=== PATIENT | male | born 1970 | race Caucasian/White ===

== ENCOUNTER → 2021-09-17 16:11 | Outpatient (BNVA) | payer BC, SELFPAY | PROVIDERS: PCP Nurse Practitioner Family; Visit Provider Physician Assistant Surgical | DX: Z13.89 Encounter for screening for other disorder (principal) ==

== ENCOUNTER → 2021-09-22 08:51 | Outpatient (BNVA) | payer BC, SELFPAY | PROVIDERS: PCP Nurse Practitioner Family; Visit Provider Physician Assistant Surgical | DX: Z13.89 Encounter for screening for other disorder (principal) ==

== ENCOUNTER 2021-09-23 | Outpatient (REF) | payer BC, SELFPAY ==
[2021-09-26 15:26] LABS: H Pylori Breath Test Negative (Negative)
== END 2021-09-23 00:01 | disposition home or self-care (01) ==
LOC: HO.LNP
PROVIDERS: Physician Assistant Surgical; Visit Provider Surgery
DX: A04.8 Other specified bacterial intestinal infections (principal)
CPT/HCPCS: 36415; 83013

== ENCOUNTER → 2021-09-23 16:06 | Outpatient (BNVA) | payer BC, SELFPAY | PROVIDERS: PCP Nurse Practitioner Family; Visit Provider Surgery | DX: Z13.89 Encounter for screening for other disorder (principal) | CPT/HCPCS: 36415 ==

== ENCOUNTER 2021-10-01 06:21 | Outpatient (REF) | payer BC, SELFPAY ==
[2021-10-01 06:42] LABS: MANUAL DIFF FLAG NO
--- NOTE | 2021-10-01 06:55 | ECG_ITS ---
Test Reason : E66.01 Blood Pressure : / mmHG Vent. Rate : 078 BPM Atrial Rate : 000 BPM P-R Int : 000 ms QRS Dur : 094 ms QT Int : 370 ms P-R-T Axes : 000 074 016 degrees QTc Int : 421 ms Atrial fibrillation Low voltage QRS Abnormal ECG No previous ECGs available Referred By: Giovanny Alanis Electronically Signed By:PHUC HERNANDEZ MD
[2021-10-01 07:55] LABS: Basophils Percent Auto 0.7 % (0-2); Eosinophils Absolute Auto 0.2 X10*3/uL (0.0-0.4); Eosinophils Percent Auto 3.9 % (0-4); Hematocrit 48.2 % (42.0-52.0); Hemoglobin 16.5 g/dl (14.0-18.0); Imm Gran Abs Auto 0.01 X10*3/uL (0.00-0.03); Imm Gran Pct Auto 0.2 % (0.0-0.4); Lymphocytes Absolute Auto 1.3 X10*3/uL (1.2-4.9); Lymphocytes Percent Auto 30.5 % (20-40); Mean Corpuscular HGB Conc 34.2 g/dl (31.0-36.0); Mean Corpuscular Hemoglobin 32.6 pg (27.0-33.0); Mean Corpuscular Volume 95.3 fL (80.0-98.0); Monocytes Absolute Auto 0.4 X10*3/uL (0.1-1.2); Monocytes Percent Auto 9.8 % (2-11); Neutrophils Absolute Auto 2.3 x10*3/uL (2.0-8.3); Neutrophils Percent Auto 54.9 % (45-73); Platelet Count 176 X10*3/uL (160-400); Red Blood Count 5.06 X10*6/uL (4.60-5.80); Red Cell Distribution Width 12.5 % (11.0-16.0); White Blood Count 4.1 X10*3/uL (4.8-10.8)
[2021-10-01 08:07] LABS: Estimated Average Glucose 111 mg/dL; Hemoglobin A1c % 5.5 %
[2021-10-01 08:18] LABS: Alanine Aminotransferase 58 U/L (0-40); Albumin Level 4.5 g/dL (3.5-5.0); Alkaline Phosphatase 80 U/L (39-117); Anion Gap 14 (12-20); Aspartate Amino Transferase 38 U/L (5-37); Bilirubin Total 0.9 mg/dL (0.0-1.0); Blood Urea Nitrogen 14 mg/dL (9-16); C Reactive Protein 0.31 mg/dL (< or = 0.50); Calcium 10.4 mg/dL (8.4-10.2); Carbon Dioxide 27 mmol/L (22-29); Chloride 104 mmol/L (96-108); Cholesterol 227 mg/dL; Estimated Glomerular Filt Rate > 60; Glucose Random 107 mg/dL (60-115); HDL Cholesterol 26 mg/dL; Iron 88 mcg/dL (45-160); Percent Iron Saturation 26 % (15-50); Potassium 4.4 mmol/L (3.3-5.1); Sodium 141 mmol/L (135-145); Total Iron Binding Capacity 336 mcg/dL (228-428); Total Protein 6.8 g/dL (6.5-8.0); Unsaturated Iron Binding 248 ug/dL
[2021-10-01 08:19] LABS: LDL Cholesterol Calculated 141 mg/dl; Triglycerides 301 mg/dL
[2021-10-01 08:48] LABS: Ferritin 362 ng/mL (20-250); TSH reflex Free T4 2.54 uIU/mL (0.32-4.0); Vitamin D 25-OH Total 12.6 ng/mL (>30)
[2021-10-01 09:09] LABS: Folate > 20.0 ng/mL (> or = 4.0); Vitamin B12 393 pg/mL (200-900)
[2021-10-01 09:18] LABS: Insulin 9 uU/mL (2-29)
[2021-10-02 15:00] LABS: Calcium (PTHI) 10.3 mg/dL (8.6-10.3); PTHI 65 pg/mL (16-77)
[2021-10-05 04:41] LABS: Vitamin B1 <6 nmol/L (8-30)
[2021-10-06 23:52] LABS: Zinc 88 mcg/dL (60-130)
[2021-10-07 17:17] LABS: Vitamin A 52 mcg/dL (38-98)
== END 2021-10-01 06:22 | disposition home or self-care (01) ==
LOC: HO.LAB 06:21
PROVIDERS: PCP Nurse Practitioner Family; Visit Provider Physician Assistant Surgical
DX: Z01.818 Encounter for other preprocedural examination (principal); E66.01 Morbid (severe) obesity due to excess calories
CPT/HCPCS: 36415; 80053; 80061; 82306; 82607; 82728; 82746; 83036; 83525; 83540; 83970; 84425; 84443; 84590; 84630; 85025; 86140; 93005

== ENCOUNTER 2021-10-02 06:35 | Outpatient (REF) | payer BC, SELFPAY ==
--- NOTE | ~2021-10-02 | XR_ITS ---
EXAMINATION: XR CHEST CLINICAL INFORMATION: Morbid obesity COMPARISON: None TECHNIQUE: 2 views of the chest were obtained. FINDINGS: Normal symmetric lung volumes. No parenchymal consolidation. No pleural effusion. No pneumothorax. Cardiomediastinal silhouette and pulmonary vascularity are within normal limits. No acute osseous abnormalities. XR/XR chest 2V IMPRESSION: No acute findings.
== END 2021-10-02 06:36 | disposition home or self-care (01) ==
LOC: HO.XRAY 06:35
PROVIDERS: PCP Nurse Practitioner Family; Visit Provider Physician Assistant Surgical
DX: E66.01 Morbid (severe) obesity due to excess calories (principal)
CPT/HCPCS: 71046

== ENCOUNTER → 2021-10-06 08:19 | Outpatient (BNVA) | payer BC, SELFPAY | PROVIDERS: PCP Nurse Practitioner Family; Referring Provider Physician Assistant Surgical; Visit Provider Dietitian, Registered | DX: E66.01 Morbid (severe) obesity due to excess calories (principal) | CPT/HCPCS: 97802 ==

== ENCOUNTER → 2021-10-20 08:24 | Outpatient (BNVA) | payer BC, SELFPAY | PROVIDERS: PCP Nurse Practitioner Family; Visit Provider Physician Assistant Surgical | DX: Z13.89 Encounter for screening for other disorder (principal) ==

== ENCOUNTER → 2021-10-22 16:45 | Outpatient (BNVA) | payer BC, SELFPAY | PROVIDERS: PCP Nurse Practitioner Family; Visit Provider Counselor Mental Health | DX: Z13.89 Encounter for screening for other disorder (principal) | CPT/HCPCS: 90791 ==

== ENCOUNTER 2021-11-10 08:33 | Outpatient (REF) | payer BC, SELFPAY ==
--- NOTE | ~2021-11-10 | FL_ITS ---
EXAMINATION: XR FLUOROSCOPY UPPER GI WITH AIR CLINICAL INFORMATION: Obesity. Prebariatric surgery. COMPARISON: None TECHNIQUE: Upper GI was performed using thin and thick barium and effervescent granules. FINDINGS: Esophageal motility is normal. No reflux or hernia is seen. The stomach and duodenum are normal-appearing. No fold thickening, mass, ulcer or stricture is seen. FLUOROSCOPY TIME: 0.5 minutes DOSE AREA PRODUCT: 7 vigil per centimeter squared. 21 saved fluoroscopic images. FL/FL upper GI w air IMPRESSION: Unremarkable examination.
--- NOTE | ~2021-11-10 | US_ITS ---
EXAMINATION: US COMPLETE ABDOMEN WITH LIVER ELASTOGRAPHY CLINICAL INFORMATION: Morbid obesity COMPARISON: None. TECHNIQUE: Real-time imaging of the abdominal viscera. Noninvasive ultrasound liver fibrosis assessment is performed using Christa ElastPQ point quantification shear wave elastography (2D-SWE) with a C5-2 MHz transducer. Multiple elastography samples are obtained. FINDINGS: PANCREAS: Normal. The visualized pancreatic head and body are normal in appearance. The remainder of the pancreas is obscured from visualization by the overlying bowel gas. ABDOMINAL AORTA: The proximal, middle, and distal aortic segments are normal in caliber. INFERIOR VENA CAVA: Visualized portions are normal. LIVER: Normal. The liver demonstrates normal size and contour. Increased parenchymal echogenicity compatible fatty infiltration.. No focal lesion or intrahepatic biliary duct dilatation. The right lobe measures 14.9 cm in length. The left lobe measures 11.1 cm in length. Portal flow is towards the liver (hepatopetal). Shear wave liver elastography median stiffness is 1.35 m/s (reference: normal median stiffness is 1.3 m/s or less). IQR/median stiffness to assess sampling precision is 0.29 (reference: good quality data set is IQR/median stiffness of 0.15 or less). GALLBLADDER: Normal. The gallbladder is physiologically distended without evidence of stones, sludge, polyps, wall thickening or pericholecystic fluid. COMMON BILE DUCT: Normal in caliber measuring 0.4 cm in diameter. RIGHT KIDNEY: Normal. No hydronephrosis. No renal calculi or focal parenchymal lesions. The kidney measures 13.1 cm in maximum dimension. LEFT KIDNEY: Normal. No hydronephrosis. No renal calculi or focal parenchymal lesions. The kidney measures 13.8 cm in maximum dimension. SPLEEN: Normal. The spleen measures 16.0 cm in maximum dimension. FREE FLUID: None. US/US abdomen comp w elastography IMPRESSION: 1. Hepatic steatosis. 2. Liver elastography: Although measurements appear to rule out compensated advanced chronic liver disease, there is statistical variability of the sampling which decreases accuracy. 3. Splenomegaly. REFERENCE: Society of Radiologists in Ultrasound Liver Stiffness Thresholds (2019): LIVER STIFFNESS THRESHOLDS: *Liver Stiffness equal or less than 1.3 m/s: High probability of being normal. *Liver Stiffness less than 1.7 m/s: In the absence of other known clinical signs, rules out compensated advanced chronic liver disease. *Liver Stiffness 1.7-2.1 m/s: Suggestive of compensated advanced chronic liver disease but need further test for confirmation. *Liver Stiffness over 2.1 m/s: Rules in compensated advanced chronic liver disease. *Liver Stiffness over 2.4 m/s: Suggestive of clinically significant portal hypertension. QUALITY OF DATA SET: *IQR/Median value equal or less than 0.15 implies a quality data set. *IQR/Median value over 0.15 implies a poor quality data set. SIGNIFICANT CHANGE FROM PRIOR EXAM: Significant change if liver stiffness measurement is 10% or greater from prior exam. OTHER CONSIDERATIONS: The stage of liver fibrosis may be overestimated in the setting of acute hepatitis, liver inflammation, elevated liver function tests, hepatic vascular congestion, obstructive cholestasis, non-fasting state, and infiltrative diseases such as amyloidosis and lymphoma. In some patients with NAFLD, the liver stiffness thresholds for compensated advanced chronic liver disease may be lower. In causes other than viral hepatitis and NAFLD, liver stiffness thresholds are not well established.
== END 2021-11-10 08:34 | disposition home or self-care (01) ==
LOC: HO.US 08:33
PROVIDERS: Visit Provider Physician Assistant Surgical
DX: Z01.818 Encounter for other preprocedural examination (principal); E66.01 Morbid (severe) obesity due to excess calories
CPT/HCPCS: 74246; 76705; 76981

== ENCOUNTER → 2021-11-27 08:46 | Outpatient (BNVA) | payer BC, SELFPAY | PROVIDERS: PCP Nurse Practitioner Family; Visit Provider Surgery | DX: Z13.89 Encounter for screening for other disorder (principal) ==

== ENCOUNTER 2021-12-25 12:04 | Outpatient (REF) | payer BC, SELFPAY | END 2021-12-25 12:05 | disposition home or self-care (01) | LOC: HO.LAB 12:04 | PROVIDERS: PCP Nurse Practitioner Family; Visit Provider Surgery | DX: Z13.89 Encounter for screening for other disorder (principal) ==

== ENCOUNTER 2021-12-30 06:02 | Inpatient (IN) | payer BC, SELFPAY ==
[2021-12-24 11:17] VITALS: BMI 48.2
[2021-12-25 12:29] LABS: MANUAL DIFF FLAG NO
[2021-12-25 13:32] LABS: Basophils Percent Auto 0.4 % (0-2); Eosinophils Absolute Auto 0.2 X10*3/uL (0.0-0.4); Eosinophils Percent Auto 3.1 % (0-4); Hematocrit 45.6 % (42.0-52.0); Hemoglobin 15.2 g/dl (14.0-18.0); Imm Gran Abs Auto 0.02 X10*3/uL (0.00-0.03); Imm Gran Pct Auto 0.4 % (0.0-0.4); Lymphocytes Absolute Auto 1.1 X10*3/uL (1.2-4.9); Mean Corpuscular HGB Conc 33.3 g/dl (31.0-36.0); Mean Corpuscular Hemoglobin 31.7 pg (27.0-33.0); Mean Corpuscular Volume 95.2 fL (80.0-98.0); Mean Platelet Volume 12.4 fL (9.4-12.4); Monocytes Absolute Auto 0.6 X10*3/uL (0.1-1.2); Monocytes Percent Auto 10.1 % (2-11); Neutrophils Absolute Auto 3.5 x10*3/uL (2.0-8.3); Platelet Count 172 X10*3/uL (160-400); Red Blood Count 4.79 X10*6/uL (4.60-5.80); Red Cell Distribution Width 13.9 % (11.0-16.0); White Blood Count 5.4 X10*3/uL (4.8-10.8)
[2021-12-25 13:39] LABS: Estimated Average Glucose 94 mg/dL; Hemoglobin A1C 127.3534 umol/L; Hemoglobin A1c % 4.9 %
[2021-12-25 13:41] LABS: INTERNATIONAL NORM RATIO 1.1 (0.9-1.1)
[2021-12-25 13:44] LABS: Partial Thromboplastin Time 41.7 SEC (24.1-38.0)
[2021-12-25 14:03] LABS: Alanine Aminotransferase 48 U/L (0-40); Albumin Level 4.5 g/dL (3.5-5.0); Alkaline Phosphatase 83 U/L (39-117); Anion Gap 13 (12-20); Aspartate Amino Transferase 25 U/L (5-37); Bilirubin Total 1.3 mg/dL (0.0-1.0); Blood Urea Nitrogen 16 mg/dL (9-16); C Reactive Protein 0.33 mg/dL (< or = 0.50); Calcium 10.2 mg/dL (8.4-10.2); Carbon Dioxide 30 mmol/L (22-29); Chloride 107 mmol/L (96-108); Cholesterol 215 mg/dL; Creatinine Clr Calc Pharmacy 117.2; Estimated Glomerular Filt Rate > 60; Glucose Random 98 mg/dL (60-115); HDL Cholesterol 26 mg/dL; LDL Cholesterol Calculated 143 mg/dl; Potassium 4.8 mmol/L (3.3-5.1); Sodium 145 mmol/L (135-145); Total Protein 6.7 g/dL (6.5-8.0); Triglycerides 234 mg/dL
[2021-12-25 14:14] LABS: Insulin 6 uU/mL (2-29); TSH reflex Free T4 2.18 uIU/mL (0.32-4.0)
--- NOTE | 2021-12-26 23:11 | MHC.SHP ---
Pre-Procedural Eval Section A Date of Service: 12/26/21 The patient is an INPATIENT: Yes The History & Physical has been completed within 30 days and I have reviewed it.: Yes Section B Chief Complaint: obesity Relevant Family History (Specify if Yes): No Relevant Social History: None Present Medications: None Medical History: No relevant PMH History of Previous Operations: No relevant previous surgery Allergies: Allergies Allergy/AdvReac Type Severity Reaction Status Date / Time No Known Allergies Allergy Verified 12/24/21 11:17 Review of Systems Sugical H&P ROS: Negative: Constitution, Cardiovascular, Respiratory, Neurological, Psychiatric, Hem-Onc, Allergic/Immunologic, Gastrointestinal, Genitourinary, Musculoskeletal, Integumentary, Endocrine and Eyes/Ears/Nose/Throat Exam Surgical H&P Exam: Normal: HEENT, Normal: Heart, Normal: Lungs, Normal: Extremities, Normal: Abdomen, Normal: Skin and Normal: Neurological Plan Diagnosis/Plan: Unchanged I have reviewed the history and physical and performed a pertinent physical examination on my patient. No changes have occurred unless specified.
[2021-12-29 15:19] LABS: COVID-19 Test Negative (Negative)
[2021-12-30] VITALS (14 sets, daily range): BP systolic 118–169; BP diastolic 65–97; PULSE 68–100; RESP 14–18; TEMP 35.9–37.4; O2SAT 92–99
[2021-12-30] MEDS: Lactated Ringers 1,000 ML 999 ML IV ×2 (06:58→07:03)
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
[2021-12-30] MEDS: ceFAZolin Sodium/Dextrose,Iso 2 GM/50 ML PIGGYBACK IV ×2 (07:42→13:35)
--- NOTE | 2021-12-30 10:31 | P.DS_ITS ---
DS: Providers Provider Date of Service: 12/31/21 Date of admission: 12/30/21 06:02 Primary care physician: Merly Yanes NP DS: Summary Hospital Course Hospital Course: ADMITTING DIAGNOSIS: morbid obesity, Afib, HTN, DISCHARGE DIAGNOSIS: same, s/p laparoscopic sleeve gastrectomy PAST SURGICAL HISTORY: hysterectomy, mastectomy PROCEDURE: upper endoscopy, laparoscopic sleeve gastrectomy DISCHARGE SUMMARY: History of Present Illness: The patient is a 51 year-old transgendered man with a BMI of 56.7 kg/m2 and associated co-morbidities as described above. The patient had extensive work- up,lost 43.2 lbs preoperatively and was electively scheduled for laparoscopic, possible open sleeve gastrectomy and gastropexy. Risks and complications of the surgery were discussed with the patient in advance, particularly the possibility of , pulmonary embolism, anastomotic leak, bleeding, bowel injury, GERD, cardiac, renal or pulmonary complications. The patient understood all the risks and was in agreement with the surgical plan. Hospital Course: The patient underwent an uneventful laparoscopic sleeve gastrectomy with gastropexy on the day of admission. Postoperatively, the patient was transferred to the surgical floor. The patient received IV Acetaminophen and IV dilaudid for pain control. Patient was started on bariatric phase 1 diet POD #0. On postoperative day one, the patient was feeling well without nausea, vomiting, fevers, or tachycardia. The patient had some mild incisional pain and the abdomen was soft. On the morning of postoperative day one, the patient was continued on 1 ounce of water or ice every half hour. During the day, the patient did fairly well, having some incisional pain, but able to ambulate adequately and to tolerate liquids well. Since the patient is doing well, we decided that the patient was ready to be discharged. The patient was given instructions to follow-up with me next week and to call my office for any fever over 101, persistent abdominal pain, nausea, vomiting, GERD, symptoms of DVT such as calf tenderness, or leg swelling, or pulmonary embolism such as chest pain or shortness of breath. The patient was also instructed to drink 40-60 ounces of liquids per day using the 1-ounce cups. The patient had been given prescriptions for Tylenol for pain, Zofran prn for nausea, and pantoprazole and carafate previously. The patient was encouraged to ambulate and use the incentive spirometer. The patient was allowed to shower, but no baths, and encouraged to stay active at home. All of these instructions were given to the patient personally. All questions were answered and the patient understood all instructions, the instructions were also given to the patient in print. Time Spent with Patient Time attestation: Total time spent providing and/or coordinating discharge services: Discharge coordination time: Less than 30 minutes Quality: Safe Use of Opioids Does Pt have an Active Cancer Diagnosis on the Problem List?: No Quality: Stroke Does the patient have a stroke diagnosis?: No Physical Exam Vital Signs: Vital Signs: Last Vital Signs Temp 96.7 F L 12/30/21 06:25 Pulse 68 12/30/21 06:25 Resp 16 12/30/21 06:25 BP 118/65 12/30/21 06:25 Pulse Ox 96 12/30/21 06:25 O2 Del Method 12/30/21 06:25 BMI result Body Mass Index 48.2 DS: Data Data Completed and Pending Pending studies at discharge: Pending at discharge 12/30/21 09:47 Surgical [PTH] Routine Labs on day of discharge: Laboratory Results - last 24 hr 12/29/21 14:20 COVID-19 (DIANA) Negative COVID-19 Clin Com See Note Discharge Plan Discharge Anticipated Discharge Date/Time: 12/31/21 10:00 Patient Disposition: Home, Self-Care Discharge Diagnosis: s/p sleeve gastrectomy Referrals: Merly Yanes NP [Primary Care Provider] - 1 Week Discharge Medications: Continued pantoprazole 40 mg tablet,delayed release (DR/EC) 40 mg PO DAILY Qty: 30 2RF sucralfate 100 mg/mL suspension 10 ml PO BID Qty: 400 2RF ondansetron HCl 4 mg tablet 4 mg PO Q12H Qty: 20 0RF cetirizine [Zyrtec] 10 mg tablet 10 mg PO DAILY PRN (Reason: Allergy Symptoms) albuterol sulfate 90 mcg/actuation HFA aerosol inhaler 2 inh inhalation Q6H PRN (Reason: shortness of breath or wheezing) Qty: 6.7 0RF (DME) BD Luer-Milton Syringe 3 mL 22 gauge x 1 syringe See Rx Instructions IM Q2W Qty: 1 Rx Instructions: As directed Held fondaparinux 2.5 mg/0.5 mL syringe 2.5 mg subcut Q24H Qty: 5 2RF Hold Instructions: Discuss restart with Dr Ng Label Comments: first dose 12/24 6 pm testosterone cypionate [Depo-Testosterone] 200 mg/mL oil 100 mg IM Q2W Qty: 1 0RF Hold Instructions: Discuss restart with Dr Ng Rx Instructions: last dose 12/05-to hold 5 weeks amlodipine 5 mg tablet 5 mg PO DAILY Qty: 1 0RF Hold Instructions: Resume on 01/01/22. Send first your blood pressure daily to Dr. Ng and wait for him to respond before you take this medication metoprolol tartrate 25 mg tablet 25 mg PO BID Qty: 1 0RF Hold Instructions: Resume on 01/01/22. Send first your blood pressure daily to Dr. Ng and wait for him to respond before you take this medication lisinopril 20 mg tablet 20 mg PO DAILY Qty: 1 0RF Hold Instructions: Resume on 01/01/22. Send first your blood pressure daily to Dr. Ng and wait for him to respond before you take this medication methotrexate sodium 10 mg tablet 20 mg PO QWEEK Qty: 1 0RF Hold Instructions: Discuss restart with Dr Ng Label Comments: last dose 12/18, to hold for 5 weeks Xarelto 20 mg tablet 20 mg PO DAILY Qty: 30 3RF Hold Instructions: Discuss restart with Dr Ng Rx Instructions: must administer with evening meal Discontinued cholecalciferol (vitamin D3) 125 mcg (5,000 unit) capsule 125 mcg PO DAILY Qty: 30 3RF thiamine HCl (vitamin B1) 100 mg tablet 100 mg PO DAILY Qty: 90 1RF polyethylene glycol 3350 [Miralax] 17 gram powder in packet 17 g PO DAILY Qty: 14 0RF Rx Instructions: Do 7 packets mixing each one with 8oz of water on 12/28/21 and another 7 packets on 12/29/21 mecobalamin (vitamin B12) 1,000 mcg tablet,disintegrating 1,000 mcg sublingual DAILY Qty: 30 2RF Rx Instructions: place tablet under tongue and allow to dissolve for at least30 secs before swallowing folic acid 1 mg tablet 1 mg PO DAILY Qty: 1 0RF Discharge Orders: Discharge Order (Routine); Ordered 12/31/21 Ordered By: Dada Ng Activity on Discharge: No heavy lifting Stand Alone Forms: Patient Portal Discharge page Care Plan Goals: weight loss Health Concerns: morbid obesity Plan of Treatment: No tub baths, sex or returning to work until discussed at first post op appointment. No exercise, alcohol, tobacco or illegal drug use. Continue to use incentive spirometer hourly while awake. Walk in home for 5- 10 minutes every 2 hours during the first week. Continue phase 1 diet today and start phase 2 diet tomorrow morning. Follow all instructions in the bariatric handbook and call with any questions. 1. Please call your doctor or come back to the emergency room should any new symptoms arise. 2. You will receive a courtesy call from [facility] 24-48 hours after discharge. 3. Activity: abstain from alcohol, practice limited stair climbing, no bending, no driving, no exercise, no illicit substances, no lifting, no sex, no tub bath, no work. 4. Diet: continue as discussed with Dr. Ng. 5. Dressing Change/Wound Care: Do not change or remove surgical dressings unless they are wet or soiled. 6. Call your doctor if: - Your temperature exceeds 101.5 F - You experience excessive pain or swelling - You have an unexpected reaction to medication - You have excessive bleeding - You experience continued vomiting/nausea - Your incision begins to separate - Your incision shows signs of infection such as increased redness, swelling, excessive pain, heat, or drainage (light blood or clear fluid is normal) 7. General instructions: No lifting greater than 5 lbs for the next 4 weeks[address] driving within 24 hours of taking narcotic pain medications. If you do not move your bowels in the next 2 days, please take milk of magnesia over the counter. Please follow the post op diet and do not advance your diet until you are seen in the office in about 2 weeks. Please walk around your home every hour or two to prevent blood clots from forming in your legs. You do not need to wake from sleeping to walk. Please sleep in a bed or couch to prevent kinking at the hips and knees. Please take your incentive spirometer (your lung chemistry instructor) home with you and use it for the next few days to prevent pneumonias. You may shower, no hot tubs, baths or swimming pools. Please call the office with any questions or concerns such as increasing abdominal pain, fever, chills, shortness of breath, chest pain, leg pain or swelling, or redness or drainage from your incisions. Do not hesitate to contact the office with any questions at . The patient's medical history has been reviewed and they are considered low risk for post op DVT and therefore DVT prophylaxis is not considered necessary. Travel after surgery was reviewed. The patient has not disclosed any travel plans during the first 30 days after surgery and they have been advised that within the first 30 days after surgery any bus, plane, train or car travel over 2 hours in duration is contraindicated due to the possibility of developing blood clots from immobility. Any travel, needs to include periods of ambulation of 10 minutes in duration every 2 hours. The patient was instructed to discuss any plans for travel during this period with their bariatric surgeon. Assessment: stable, post op sleeve gastrectomy Discharge Date/Time: 12/31/21 09:28
--- NOTE | 2021-12-30 10:36 | PHA.MEDREC ---
Pharmacy Consult ? Medication Reconciliation RN has completed the medication reconciliation,pharmacy reviewed
--- NOTE | 2021-12-30 10:37 | PM.OP ---
Brief Operative Note Date of Service: 12/30/21 Pre-op diagnosis: Morbid obesity with comorbidities (see below) Post-op diagnosis: same Procedure: INITIAL PATIENT BMI ON PRESENTATION AT OUR OFFICE: 55.9 kg/m2 LAST BMI BEFORE SURGERY: 48.2 kg/m2 COMORBIDITIES: asthma, hypertension, atrial fibrilation, ?The patient presented to the Weight Management Program with significant obesity that was negatively impacting the patient's comorbidities as listed above.? The program is a phased program with a special focus on preoperative medical weight management to promote substantial weight loss and prepare the patients for the second phase of the program: bariatric surgery. The patient participated in an intensive weekly lifestyle ?intervention and exercise program during which the patient ?has lost between the initial office visit and the last preoperative visit 47 lbs, or 15.15% of initial actual body weight. It was deemed appropriate for the patient to now have bariatric surgery. In light of the current Covid-19 pandemic and the well documented strong association of obesity and increased risk of worse outcomes if infected with Covid-19 (REFERENCES:https://pubmed.ncbi.nlm.nih.gov/35564880/,?https://pubmed.ncbi.nlm.nih.gov/63051454/), any delay in undergoing bariatric surgery may lead to the patient's worsening health condition and increased?risk of more severe Covid-19 disease if infected. In addition a recent?study from [facility] published in [facility] on 06/22/2021 ([email or web address]) found that, among patients with obesity, substantial weight loss achieved with surgery was associated with improved outcomes of COVID-19 infection. The findings suggest that obesity can be a modifiable risk factor for the severity of COVID-19 infection. In addition, the patient met the BMI-criteria for bariatric surgery based on the BMI on initial presentation. The patient should not be penalized for achieving such weight loss because ?it is not sustainable long-term without surgical intervention and it was achieved in preparation for bariatric surgery ?under my direction and based on my published research ([email or web address]).[email or web address] and?[email or web address].soard.org/article/[email or web address]/pdf) ?that a 10% preoperative weight loss improves long-term weight loss after surgery and reduces perioperative complications.? Insurance carriers such as [facility] have endorsed my recommendations ?and have included in their policies criteria to include a 10% preoperative weight loss requirement. PROCEDURE: Esophago-gastroscopy, laparoscopic sleeve gastrectomy and laparoscopic gastropexy INDICATIONS: This is a 51 year-old male who was electively scheduled for laparoscopic, possibly open sleeve gastrectomy. The risks and complications of the procedure were discussed with the patient in advance, particularly the possibility of ; pulmonary embolism; staple line leak; bleeding; GERD; cardiac, pulmonary, or renal complications; as well as long-term problems such as insufficient weight loss, vitamin deficiency, strictures, or ulcers. The patient understood all the risks, and was in agreement to proceed with surgery. DESCRIPTION OF PROCEDURE: After informed consent was obtained from the patient, the patient was given preoperative antibiotics, and was transferred to the operating room. After successful induction of general anesthesia, pneumatic compression devices were placed on both lower extremities. An upper endoscopy was performed next. The oropharynx and esophagus appeared to be within normal limits. There was no diaphragmatic hernia present consistent with the findings of the preoperative upper GI. The stomach was entered. Then after all fluid and air were suctioned and the stomach was fully decompressed, the scope was withdrawn and secured in the mid esophagus. The patient was then prepped and draped in the usual sterile manner, and abdominal access was established at the right upper quadrant with the Tereso technique. A 12 mm blunt port was inserted, and the abdomen was insufflated with CO2 to a pressure of 15 mmHg. Under direct visualization, additional ports were placed, specifically two 5 mm Versi-step ports to the left upper quadrant, and a 5 mm Versi-Step port to the right upper quadrant. 1% lidocaine plain was used to infiltrate all port sites as well as all fascia defects. Using the EndoClose suture passer device, I placed a #1 Polysorb tie across the falciform ligament in order to retract it up against the abdominal wall and prevent injury of the ligament with our instruments during the procedure. Following that, the patient was placed in a steep reverse Trendelenburg position. An additional 5 mm port was placed to the right flank for the Mediflex retractor that was used to retract the left lobe of the liver. The gastro-esophageal fat pad was opened with the ultrasonic device (Thunderbeat, Olympus) and the anterior esophagus and hiatus were exposed. The angle of His was opened with the ultrasonic device the fundus of the stomach from any diaphragmatic and splenic attachments. I then opened the gastrocolic ligament between the transverse colon and the greater curvature of the stomach with the ultrasonic device to enter the lesser sac and facilitate the ligation of the short gastric vessels. I started at a mid-point along the greater curvature and using the Thunderbeat, all short gastric vessels were divided all the way to the angle of His until the left bassem was completely dissected at its entirety. I then divided the gastro-colic ligament distally to a distance of about 3-4 cm proximal to the pylorus. The stomach was then divided transversely with one Endo YULI-45 purple, one YULI-45 orange load and four YULI-60 articulating orange loads using the AEON stapler and loads. Every effort was made that the gastric sleeve had a tubular shape and an even caliber throughout. Once the sleeve resection was completed, the staple line of the gastric sleeve was reinforced with Hemoclips. The resected stomach was retrieved without difficulty from the Tereso port. A gastropexy was then performed in order to prevent postoperative GERD and partial gastric volvulus. Several interrupted 2.0 Surgidac sutures were placed between the sleeve's staple line and the previously divided greater omentum and gastro-colic ligament using the Endo-Stitch device. ?An upper endoscopy was performed. There was no narrowing at the GE junction. The scope was easily advanced all the way to the pylorus which was clearly visualized. There was no narrowing anywhere and the sleeve's caliber was even throughout. The sleeve's staple line was inspected and there was no evidence of ischemia, bleeding or dehiscence. At that point the gastroscope was withdrawn from the patient?s mouth while we were decompressing the bowel and the stomach from any remaining air. I looked into the lesser sac to see how the sleeve was situating and it was situating well. There was no bleeding from the staple line, spleen, or short gastric vessels. The Mediflex retractor was removed, and the undersurface of the liver was inspected and there was no bleeding. The patient was placed in supine position. I closed the fascial defect of the 12 mm port site with a figure of eight #1 Polysorb suture. Then 40ml of Rupivacaine plain with 10 mg of Dexamethasone were used to infiltrate the fascial closure as well as all skin incisions. A total of 7 ml of Zynrelef was applied in the Tereso wound. At this point, the abdomen was deflated, all ports were removed under direct vision, and no bleeding was noted from any of the port sites. The skin incisions were irrigated with saline and were closed with 4-0 absorbable monofilament sutures. Steri-Strips and OpSites were used to cover all incisions. The patient was extubated and was transferred in stable condition to the recovery room for further care. I was present and performed all burch parts of the procedure. Ya Lizarraga was the pediatric assistant. There were no residents to assist with this case. Mikey Ng MD, PhD, FACS Surgeon: Dada Ng MD Anesthesia: GETA, local and other (TAP block & 7 ml of Zynrelef) Was an Sustainable Communities Designer used for this Procedure?: Yes Sustainable Communities Designer: Isabel Lizarraga Estimated blood loss (mL): 10 IV fluids (mL): 3,000 Urine output (mL): 0 (No whitney to record output) Pathology: other (Stomach and fat pad) Condition: stable Disposition: PACU
--- NOTE | 2021-12-30 10:46 | PM.PNGS ---
Subjective Subjective Date of Service: 12/31/21 Interval history: Feels well. Mild incisional pain. He is tolerating phase 1 bariatric diet Physical Exam Vital Signs: Vital Signs: Last Vital Signs Temp 98.2 F 12/30/21 10:24 Pulse 83 12/30/21 10:34 Resp 18 12/30/21 10:34 BP 137/85 12/30/21 10:34 Pulse Ox 99 12/30/21 10:34 O2 Del Method 12/30/21 10:34 O2 Flow Rate 8 12/30/21 10:34 BMI result Body Mass Index 48.2 GI: Inspection: Yes normal to inspection, Yes incision (clean, dry and intact) and Yes obesity Extrem: Right lower extremity: normal to inspection (no calf tenderness) Left lower extremity: normal to inspection (no calf tenderness) Objective Data Active Medications Albuterol Sulfate (Albuterol Sulfate (0.083%) 2.5 Mg/3 Ml Vial.Neb) 2.5 mg INHALE ONCE PRN PRN Reason: Shortness of Breath/Wheezing Albuterol Sulfate (Albuterol Sulfate 90 Mcg 8 Gm Inhaler) 2 puff INHALE Q6H PRN PRN Reason: shortness of breath or wheezing Amlodipine Besylate (Amlodipine Besylate 5 Mg Tablet) 5 mg PO DAILY OTIS; Protocol Famotidine (Famotidine/Pf 20 Mg/2 Ml Vial) 20 mg IVPUSH BID OTIS Fentanyl (Fentanyl Citrate/Pf 100 Mcg/2 Ml Vial) 25 mcg IVPUSH Q5M PRN; Protocol PRN Reason: Pain, Moderate (Pain Scale 4-6 Hydromorphone HCl (Hydromorphone Hcl 0.5 Mg/0.5 Ml Syringe) 0.25 mg IVPUSH Q5M PRN; Protocol PRN Reason: Pain, Severe (Pain Scale 7-10) Promethazine HCl 6.25 mg/ (Sodium Chloride) 50.25 mls @ 201 mls/hr IV ONCE PRN PRN Reason: Nausea and Vomiting Lactated Ringer's (Lr) 1,000 mls @ 100 mls/hr IVCONT .Q10H OTIS Lisinopril (Lisinopril 20 Mg Tablet) 20 mg PO DAILY [facility]; Protocol Metoclopramide HCl (Metoclopramide Hcl 10 Mg/2 Ml Vial) 10 mg IVPUSH Q6H PRN PRN Reason: Nausea Metoprolol Tartrate (Metoprolol Tartrate 25 Mg Tablet) 25 mg PO BID OTIS; Protocol Ondansetron HCl (Ondansetron Hcl 4 Mg/2 Ml Vial) 4 mg IVPUSH ONCE PRN PRN Reason: Nausea and Vomiting Labs CBC & Chem 7: 12/31/21 05:51 12/31/21 05:51 Labs: Laboratory Results - last 24 hr 12/29/21 14:20 COVID-19 (DIANA) Negative COVID-19 Clin Com See Note Procedures Date of Service Date of Service: 12/31/21 Progress Note: A&P Assessment and plan (1) Morbid obesity: Status: Acute Assessment and Plan: s/p laparoscopic sleeve gastrectomy and gastropexy Doing well Will check am labs and if OK the patient will be discharged home (2) HTN (hypertension): Status: Acute (3) Atrial fibrillation: Status: Acute (4) PCOS (polycystic ovarian syndrome): Status: Acute (5) Asthma: Status: Acute (6) S/P laparoscopic sleeve gastrectomy: Status: Acute (7) Steatosis, liver: Status: Acute (8) Status post sleeve gastrectomy: Status: Acute Time Spent With Patient Time: Total time spent is greater than 50% in coordination of care (as documented) at patient's floor/unit and/or counseling patient: Quality Stroke Does the patient have a stroke diagnosis?: No VTE Prior VTE?: No VTE Risk Level:: Surgical - moderate VTE Device Contraindication: N/A - Device Ordered VTE Drug Contraindication: Treatment Not Indicated
[2021-12-30] MEDS: Lactated Ringers 1,000 ML 100 ML IVCONT ×2 (10:56→19:41)
[2021-12-30] MEDS: Famotidine/PF 20 MG/2 ML VIAL IVPUSH ×2 (10:57→19:36)
[2021-12-30 11:00] LABS: Hematocrit 47.9 % (42.0-52.0); Hemoglobin 16.2 g/dl (14.0-18.0)
[2021-12-30 11:18] LABS: Anion Gap 13 (12-20); Blood Urea Nitrogen 14 mg/dL (9-16); Calcium 9.6 mg/dL (8.4-10.2); Carbon Dioxide 27 mmol/L (22-29); Chloride 104 mmol/L (96-108); Creatinine Clr Calc Pharmacy 110.7; Estimated Glomerular Filt Rate > 60; Glucose Random 142 mg/dL (60-115); Potassium 4.1 mmol/L (3.3-5.1); Sodium 140 mmol/L (135-145)
[2021-12-30] MEDS: ondansetron HCL 4 MG/2 ML VIAL IVPUSH ×2 (15:37→23:45)
[2021-12-30] MEDS: Metoprolol Tartrate 25 MG TABLET PO (19:36)
[2021-12-30] MEDS: 0.9 % Sodium Chloride Flush 3 ML SYRINGE IVFLUSH (19:37)
[2021-12-31 03:11] VITALS: BP 136/85; PULSE 82; RESP 18; TEMP 36.7; O2SAT 96
[2021-12-31] MEDS: Lactated Ringers 1,000 ML 100 ML IVCONT (05:17)
[2021-12-31 07:05] LABS: MANUAL DIFF FLAG NO
[2021-12-31 07:09] LABS: Basophils Percent Auto 0.1 % (0-2); Hematocrit 45.7 % (42.0-52.0); Hemoglobin 15.5 g/dl (14.0-18.0); Imm Gran Abs Auto 0.03 X10*3/uL (0.00-0.03); Imm Gran Pct Auto 0.4 % (0.0-0.4); Lymphocytes Absolute Auto 0.6 X10*3/uL (1.2-4.9); Lymphocytes Percent Auto 7.5 % (20-40); Mean Corpuscular HGB Conc 33.9 g/dl (31.0-36.0); Mean Corpuscular Hemoglobin 32.4 pg (27.0-33.0); Mean Corpuscular Volume 95.4 fL (80.0-98.0); Mean Platelet Volume 12.9 fL (9.4-12.4); Monocytes Absolute Auto 0.5 X10*3/uL (0.1-1.2); Monocytes Percent Auto 5.6 % (2-11); Neutrophils Absolute Auto 7.2 x10*3/uL (2.0-8.3); Neutrophils Percent Auto 86.4 % (45-73); Platelet Count 170 X10*3/uL (160-400); Red Blood Count 4.79 X10*6/uL (4.60-5.80); Red Cell Distribution Width 13.8 % (11.0-16.0); White Blood Count 8.3 X10*3/uL (4.8-10.8)
--- NOTE | 2021-12-31 07:18 | HO.POSTANES ---
Post Anesthesia Evaluation Post Anesthesia Evaluation Vital Signs: Vital Signs Temp Pulse Resp BP Pulse Ox O2 Del Method 12/31/21 06:37 Room Air 12/31/21 03:11 98.1 F 82 18 136/85 96 Room Air 12/30/21 23:03 99.4 F 100 18 155/90 H 92 Room Air 12/30/21 21:00 142/94 H Anesthesia: General Endotracheal-GETA Mental Status: Awake Pain Control: Satisfactory Nausea/Vomiting: None Hydration: Adequate Anesthesia-Related Issues: No Anes. Related Issues
[2021-12-31 07:28] VITALS: BP 137/75; PULSE 81; RESP 18; TEMP 36.9; O2SAT 96
[2021-12-31 07:36] LABS: Anion Gap 16 (12-20); Blood Urea Nitrogen 12 mg/dL (9-16); Calcium 9.3 mg/dL (8.4-10.2); Carbon Dioxide 22 mmol/L (22-29); Chloride 105 mmol/L (96-108); Creatinine Clr Calc Pharmacy 127.6; Estimated Glomerular Filt Rate > 60; Glucose Random 120 mg/dL (60-115); Potassium 4.1 mmol/L (3.3-5.1); Sodium 139 mmol/L (135-145)
[2021-12-31] MEDS: Metoprolol Tartrate 25 MG TABLET PO (07:37)
[2021-12-31] MEDS: lisinopriL 20 MG TABLET PO (07:37)
[2021-12-31] MEDS: ondansetron HCL 4 MG/2 ML VIAL IVPUSH (07:37)
[2021-12-31] MEDS: amLODIPine Besylate 5 MG TABLET PO (07:37)
[2021-12-31] MEDS: Famotidine/PF 20 MG/2 ML VIAL IVPUSH (07:37)
--- NOTE | 2021-12-31 09:25 | MHC.CM.PN ---
EMR REVIEWED, PT ADMITTED S/P LAP SLEEVE GASTRECTOMY, PT REPORTS HE IS WORKING, LIVES W/SPOUSE, IS INDEP W/ALL CARE, DENIES USE OF DME AND HOME SERVICES, VERIFIES MODERNA X4, ZACHARY PEDROZA VERIFIED PCP AND HCP COMPLETED W/CM, PT NAMED OSMAR DYER [phone] [facility] W/NO ALTERNATE, PT PROVIDED W/EDUCATIONAL HANDOUT/ORIGINAL AND 2 COPIES. DCP: PT DISCHARGED TODAY W/F/U SHAAN 01/05 AT 1PM/2:30PM, AT BEDSIDE AND WILL TRANSPORT
== END 2021-12-31 09:28 | disposition home or self-care (01) | DRG 403 ==
LOC: HO.SSSA 10:31 → HO.S3 12:03
PROVIDERS: Physician Assistant; Physician Assistant Surgical; Admitting Provider Surgery; PCP Nurse Practitioner Family; Visit Provider Surgery
PROC: 0DB64Z3 Excision of Stomach, Percutaneous Endoscopic Approach, Vertical (ICD-10-PCS; CPT 43845; principal; 2021-12-30 07:30)
DX: E66.01 Morbid (severe) obesity due to excess calories (principal); Z20.822 Contact with and (suspected) exposure to COVID-19; Z68.43 Body mass index [BMI] 50.0-59.9, adult; Z87.891 Personal history of nicotine dependence; Z79.01 Long term (current) use of anticoagulants; Z79.899 Other long term (current) drug therapy
CPT/HCPCS: 36415; 80048; 80053; 80061; 83036; 83525; 84443; 85014; 85018; 85025; 85610; 85730; 86140; 86850; 86900; 86901; 87635; 88307; 88342; A4649; C9088; J0131; J0690; J1100; J1170; J2250; J2405; J2795; J3010

== ENCOUNTER → 2022-01-06 09:42 | Outpatient (REF) | payer BC, SELFPAY ==
--- NOTE | 2022-01-06 09:51 | ECG_ITS ---
Test Reason : PREOP Blood Pressure : / mmHG Vent. Rate : 057 BPM Atrial Rate : 000 BPM P-R Int : 000 ms QRS Dur : 092 ms QT Int : 402 ms P-R-T Axes : 000 065 020 degrees QTc Int : 391 ms Atrial fibrillation with slow ventricular response Low voltage QRS Abnormal ECG When compared with ECG of 01-OCT-2021 06:56, No significant change was found Referred By: Isabel Lizarraga Electronically Signed By:PHUC HERNANDEZ MD
== END ==
LOC: HO.CARD 09:42
PROVIDERS: PCP Nurse Practitioner Family; Visit Provider Physician Assistant
DX: Z01.818 Encounter for other preprocedural examination (principal); I48.91 Unspecified atrial fibrillation; I10 Essential (primary) hypertension; E66.01 Morbid (severe) obesity due to excess calories
CPT/HCPCS: 93005

== ENCOUNTER → 2022-01-11 07:34 | Outpatient (REF) | payer BC, SELFPAY ==
--- NOTE | 2022-01-11 07:37 | HM_ITS ---
Conclusion: 1. Patient was monitor for total period of 2 days and 23 hours 2. Baseline was atrial fibrillation with average heart of 75 beats per minute with minimal heart rate of 41 beats per minute and maximum heart rate 186 beats per minute 3. No significant pauses noted 4. One hundred eleven beat run of nonsustained VT 5. Very rare PVCs noted 6. Patient reported events but no symptoms and mostly during exertional activity level, with appropriate heart rate response MTDD
== END ==
LOC: HO.CARD 07:34
PROVIDERS: Visit Provider Internal Medicine Cardiovascular Disease
DX: I48.91 Unspecified atrial fibrillation (principal)
CPT/HCPCS: 93242

== ENCOUNTER → 2022-03-05 08:28 | Outpatient (REF) | payer BC, SELFPAY ==
--- NOTE | 2022-03-05 08:30 | CA_ITS ---
Transthoracic Echocardiogram Patient (Last, First, Middle): Piero Pritchard, Gender: Male Date of : 1970 Age: 51 Procedure Date: 03/05/2022 Procedure Type: Transthoracic Echocardiogram Location: OP Height: 160.02 cm Weight: 100.7 kg BSA: 2.02 m2 Heart Rate: 67 bpm BP: 140 / 100 mmHg Supply Crib Attendant: KIANA Referring MD: Anthony Montejo MD Symptoms: I48.91 - Unspecified atrial fibrillation Study Quality: Fair ECG Rhythm: Atrial Fibrillation Conclusions: - Normal left ventricular size and systolic function. There is mildly increased left ventricular wall thickness. The visually estimated ejection fraction is between 55-60%. - There is a flattened septum in systole consistent with right ventricular pressure overload. - PA pressures are likely underestimated. - Significantly elevated right atrial pressure. - There is mild dilatation of the ascending aorta measuring 3.70 cm. Findings Left Ventricle Normal left ventricular size and systolic function. There is mildly increased left ventricular wall thickness. The visually estimated ejection fraction is between 55-60%. There is no evidence of regional wall motion abnormalities. There is a flattened septum in systole consistent with right ventricular pressure overload. Diastolic function is indeterminate on the basis of available data. Right Ventricle Normal right ventricular cavity size and systolic function. Atria The left atrium is severely dilated. The right atrium is severely dilated. Aortic Valve There is a normal trileaflet aortic valve. There is mild thickening of the aortic valve. There is no aortic valve stenosis. There is no aortic valve regurgitation. Mitral Valve There is mild posterior mitral leaflet thickening. There is trace mitral valve regurgitation. There is no mitral valve stenosis. Pulmonic Valve Normal pulmonic valve structure and function. There is trace pulmonic valve regurgitation. Tricuspid Valve Likely normal tricuspid valve structure and function. There is trace tricuspid valve regurgitation. Significantly elevated right atrial pressure. There is no evidence of pulmonary hypertension. Great Vessels There is mild dilatation of the ascending aorta measuring 3.70 cm. The visualized portions of the pulmonary artery and branches are normal. Venous The inferior vena cava is dilated and collapses less than 50% with inspiration. Pericardium/Pleural There is no evidence of pericardial effusion. Prior Study Comparison No prior study available for comparison. Measurements 2D Linear Measurements IVSd: 1.10 0.6-0.9/0.6-1.0 cm LVIDd: 4.39 3.9-5.3/4.2-5.9 cm LVIDd Index: 2.17 2.4-3.2/2.2-3.1 cm/m2 LVIDs: 3.27 2.0-3.6 cm LVPWd: 1.35 0.7-1.1 cm LA Diam: 4.80 2.7-3.8/3.0-4.0 cm LAIDs Index: 2.38 1.5-2.3 cm/m2 LV Mass: 244.83 67-162/88-224 g LV Mass Index: 121.20 43-95/49-115 g/m2 LVOT Diam: 2.00 3.0+(-)1.3 cm 2D Systolic Function EF 4C: 53.30 >55% EF 2C: 50.90 >55% Mitral Valve MV Pk E: 0.88 MV Decel Time: 189.00 PHT: 55.00 MVA PHT: 4.00 Decel Collier: 4.66 Aortic Valve AoV Pk Maurice: 1.28 AoV Mn Maurice: 0.95 AoV VTI: 0.29 AoV Pk Grad: 7.00 Aov Mn Grad: 4.00 ANNETTE Cont.VTI: 1.96 LVOT LVOT Pk Maurice: 0.85 LVOT Mn Maurice: 0.59 LVOT VTI: 0.18 LVOT Pk Grad: 3.00 LVOT Mn Grad: 2.00 LVOT Diam: 2.00 LVOT Area: 3.14 Diastolic Function MV Pk E: 0.88 Right Ventricle TAPSE (mm): 26.20 TVS' Maurice: 12.20 Tricuspid Valve TR Pk Maurice: 2.00 TR Pk Grad: 16.00 RA Press: 5.50 RVSP: 31.00 Great Vessels Aorta Sinus of Valsalva: 3.50 2.0-3.5 cm Ao Asc: 3.70 2.1-3.4 cm Pulmonary Valve PV Pk Maurice: 0.91 Peak PV Grad: 3.00 Updated in Other Vendor System with Status of Final Ziggy Jimenez MD electronically signed on 03/08/2022 9:01:17 AM with status of Final
== END ==
LOC: HO.CARD 08:28
PROVIDERS: Visit Provider Internal Medicine Cardiovascular Disease
DX: I48.91 Unspecified atrial fibrillation (principal)
CPT/HCPCS: 93306

== ENCOUNTER 2022-05-04 07:26 | Outpatient (REF) | payer BC, SELFPAY ==
[2022-05-04 07:38] LABS: MANUAL DIFF FLAG NO
[2022-05-04 08:36] LABS: Basophils Percent Auto 0.7 % (0-2); Eosinophils Absolute Auto 0.2 X10*3/uL (0.0-0.4); Eosinophils Percent Auto 4.4 % (0-4); Hematocrit 47.1 % (42.0-52.0); Hemoglobin 15.7 g/dl (14.0-18.0); Imm Gran Abs Auto 0.01 X10*3/uL (0.00-0.03); Imm Gran Pct Auto 0.2 % (0.0-0.4); Lymphocytes Absolute Auto 1.4 X10*3/uL (1.2-4.9); Lymphocytes Percent Auto 29.7 % (20-40); Mean Corpuscular HGB Conc 33.3 g/dl (31.0-36.0); Mean Corpuscular Hemoglobin 31.5 pg (27.0-33.0); Mean Corpuscular Volume 94.6 fL (80.0-98.0); Mean Platelet Volume 13.2 fL (9.4-12.4); Monocytes Absolute Auto 0.4 X10*3/uL (0.1-1.2); Monocytes Percent Auto 7.9 % (2-11); Neutrophils Absolute Auto 2.6 x10*3/uL (2.0-8.3); Neutrophils Percent Auto 57.1 % (45-73); Platelet Count 151 X10*3/uL (160-400); Red Blood Count 4.98 X10*6/uL (4.60-5.80); Red Cell Distribution Width 13.3 % (11.0-16.0); White Blood Count 4.6 X10*3/uL (4.8-10.8)
[2022-05-04 11:23] LABS: Alanine Aminotransferase 43 U/L (0-40); Albumin Level 4.7 g/dL (3.5-5.0); Anion Gap 18 (12-20); Anion Gap 19 (12-20); Aspartate Amino Transferase 28 U/L (5-37); Bilirubin Total 0.9 mg/dL (0.0-1.0); Blood Urea Nitrogen 22 mg/dL (9-16); Blood Urea Nitrogen 23 mg/dL (9-16); Calcium 10.7 mg/dL (8.4-10.2); Calcium 10.8 mg/dL (8.4-10.2); Carbon Dioxide 26 mmol/L (22-29); Chloride 105 mmol/L (96-108); Chloride 106 mmol/L (96-108); Estimated Glomerular Filt Rate > 60; Glucose Random 94 mg/dL (60-115); Glucose Random 95 mg/dL (60-115); Potassium 5.4 mmol/L (3.3-5.1); Potassium 5.5 mmol/L (3.3-5.1); Sodium 144 mmol/L (135-145); Sodium 145 mmol/L (135-145); Total Protein 7.2 g/dL (6.5-8.0)
[2022-05-04 11:24] LABS: Alkaline Phosphatase 117 U/L (39-117)
[2022-05-07 12:12] LABS: NT-proBNP 383 pg/mL
== END 2022-05-04 07:27 | disposition home or self-care (01) ==
LOC: HO.LAB 07:26
PROVIDERS: Absent Provider Ophthalmology; Visit Provider Internal Medicine Cardiovascular Disease
DX: H44.113 Panuveitis, bilateral (principal); I10 Essential (primary) hypertension; I48.91 Unspecified atrial fibrillation
CPT/HCPCS: 36415; 80048; 80053; 83880; 85025

== ENCOUNTER → 2022-10-19 16:32 | Outpatient (BNVA) | payer BC, SELFPAY | PROVIDERS: PCP Nurse Practitioner Family; Visit Provider Physician Assistant Surgical | DX: L98.7 Excessive and redundant skin and subcutaneous tissue (principal); E66.9 Obesity, unspecified; F50.81 Binge eating disorder; Z68.30 Body mass index [BMI] 30.0-30.9, adult; Z90.3 Acquired absence of stomach [part of] | CPT/HCPCS: 99212 ==

== ENCOUNTER → 2022-10-20 11:49 | Outpatient (BNVA) | payer BC, SELFPAY | PROVIDERS: PCP Nurse Practitioner Family; Visit Provider Physician Assistant Surgical | DX: Z13.89 Encounter for screening for other disorder (principal) ==

== ENCOUNTER 2024-10-24 08:35 | Outpatient (AMB) | payer OTHER, SELFPAY ==
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
[2024-10-24 08:46] VITALS: BP 120/70; PULSE 51; BMI 35.7
--- OUTSIDE RECORDS SUMMARY | 2024-10-24 08:51 | XMS_ITS | Data Portability ---
Author Organization [place] - [facility], [facility] Address [address] [place] [address] Care Team Providers Care Waste Hand Name Role Phone ZACHARY PEDROZA Primary Care Provider [phone] Assessment No assessment recorded. Plan of Treatment Reminders Order Date Submit Date Provider Last Modified By Organization Details Last Modified Time Details Appointments None recorded. Lab None recorded. Referral None recorded. Procedures None recorded. Surgeries None recorded. Imaging US, transvagin al 2017 018 [email or web address] Not available 8 08:06:25 Medication Orders None recorded. Patient TargetsNo targets recorded. Patient Instructions Encounter Date Encounter Id Patient Instructions Last Modified By Organization Details Last Modified Time 08/30/2017 [id number] Pt here ot discuss option of hysterectomy. Sick of abnormal bleeding and worried about risk of cervical cancer. Discussed abnormal bleeding pattern. PCOS hx and obesity put him at higher risk of EIN. Agrees to come in for PUS and endometrial bx. Discussed natual hx of LGSIL. Has never had worsening of disease and therfore feel he is low risk of worsening disease. Discussed inherent risks in surgery especially in view of need for anticoagualtio-wi ll need lovenox bridge. Also with hx of elevated lipids and obesity. Discussed need for clearance with PCP/cardiology. Discussed possibility of using mirena to control abnormal bleeding. All questions answered and US/bx apt booked. fcolliton Not available 08/30/2017 16:43:23 10/06/2017 [id number] Check bx and pap . Pt has considered the mirena since our last conversation but is leaning more toward definitive surgery. KNows will need medical clearance and lovenox bridge. Will call with results fcolliton Not available 10/06/2017 09:55:08 Reason for Referral None Reported. Results Created Date Observation Date Name Description Value Unit Range Abnormal Flag Note LastModifiedBy Organization Detail LastModifiedTime 10/07/19 18 10/07/2017 surgi janeth patho logy study report Surgi janeth Patho logy Repor t DIAGN OSIS ENDOM ETRIA L BIOPS Y: ENDOM ETRIA L MUCOS A WITH SECRE TORY SONI ES. NO HYPER PLASI A. El ectro nical ly Yenny d Out * [place] [id number] Clini janeth Diagn osis and Histo ry -Dysf uncti onal uteri ne bleed ing ICD Code( s) N93.8 Other speci fied abnor mal uteri ne and vagin al bleed ing Tissu e(s) Submi tted A: Endom etriu m, biops y Gross Descr iptio n Conta iner is label ed with the patie nt's name, JOVANNI Parra. Endom etria l is noted on the requi sitio n. The speci men is recei hay in forma wil and consi sts of irreg ular tissu e fragm ents admix ed with mucus and blood measu ring 0.30 cc. The speci men is filte red and submi tted in toto in casse tte 1A. SA Testi ng perfo rmed at [facility] , [address] [place] [address] CLIA [id number] CL-[address] [facility] [address] [place], [address] 10/07/2017 16:01:11 10/07/19 18 10/07/2017 pap, IG + CT/NG + HR HPV + refle x HPV (16+1 8) report abnormal GYNEC OLOGI JANETH CYTOL OGY REPOR T A. THINP REP PAP (IMAG ER) WITH HPV SCREE N AND REFLE X TO HPV 16,18 /45 and GC/CT : SPECI MEN ADEQU ACY: SATIS FACTO RY FOR EVALU ATION ; ENDOC ERVIC AL/TR ANSFO RMATI ON ZONE COMPO NENT ABSEN T/INS UFFIC IENT. INTER PRETA TION: NEGAT RAMSEY FOR INTRA EPITH ELIAL LESIO N OR MALIG PATITO . FUNGA L ORGAN ISMS MORPH OLOGI FER CONSI STENT WITH ALEX DA SPECI ES. 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 The Pap test is a scree dhiraj test with an inher ent false negat ramsey rate. Testi ng perfo rmed at [facility] , [address] [place] [address] CLIA [id number] CL-[address] [facility] [address] [place] [address], [address] 10/07/2017 16:09:55 10/07/19 18 10/07/2017 pap, IG + CT/NG + HR HPV + refle x HPV (16+1 8) HPV result Negati ve negati ve APTIM A HPV assay detec ts 14 high risk HPV types (HPV 16,18 ,31,3 3,35, 39,45 , 51,52 ,56,5 8,59, 66,68 ). The assay is FDA appro hay for testi ng ThinP rep liqui d Pap vials but not FDA appro hay for detec ting HPV in SureP ath liqui d Pap speci mens. In-ho use valid ation has shown the assay can detec t all HPV types from this sourc e. Not Available [facility] [address] [place] [address], [address] 10/07/2017 16:09:55 10/07/19 18 10/07/2017 CT + NG DNA, PCR, unspe cifie d speci men source Infor matio n not given Not Available [facility] [address] [place], [address] 10/07/2017 16:09:56 10/07/19 18 10/07/2017 CT + NG DNA, PCR, unspe cifie d speci men chlamydia by DNA Negati ve negati ve Not Available [facility] [address] [place], [address] 10/07/2017 16:09:56 10/07/19 18 10/07/2017 CT + NG DNA, PCR, unspe cifie d speci men GC by DNA Negati ve negati ve Not FDA appro hay for GC/Ch lamyd ia in femal e urine speci mens. Test valid ated by CT for detec ting GC/Ch lamyd ia from this sourc e. Not Available [facility] [address] [place], [address] 10/07/2017 16:09:56 10/07/19 18 10/06/2017 ultra sound image s RAD fcolliton [facility] [address] [place] [address], [address], 10/06/2017 10:53:43 Result Notes None recorded. Problems Name Problem SNOMED Code Status Onset Date Resolution Date Notes Provider Name and Address Organization Details Recorded Time Hypertensive disorder 40383274 Active 2017 SHELLY GUNN MD [address] [facility], [address] [place] [address], [address], [facility] 8 15:51:44 Hypertriglycer idemia 102542405 Active 2017 SHELLY GUNN MD [address] [place], [address], [facility] 8 15:51:56 Impaired glucose tolerance 3870928 Active 2017 SHELLY GUNN MD [address] [place], [address], [facility] 8 15:52:22 Atrial fibrillation 68391366 Active 2017 SHELLY GUNN MD [address], [address], [place], [address], [facility] 8 15:52:31 Cervicovaginal cytology: Low grade squamous intraepithelia l lesion 570143140 Active 2017 SHELLY GUNN MD [address], [place], [address], [facility] 8 15:53:07 Uveitis 289474033 Active 2017 SHELLY GUNN MD [address], [address], [place], [address], [facility] 8 15:55:14 Polycystic ovaries Active 2017 SHELLY GUNN MD [address], [place], [address], 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 8 16:13:07 Asthma 533735728 Active 2017 SHELLY GUNN MD [address], [address], [place], [address], [facility] 8 16:37:46 Problem Notes None recorded. Procedures Surgical History Date Name Laterality Status Provider Name and Address Organization Details Recorded Time 8 Endometrial Biopsy Procedure Note completed SHELLY GUNN MD [address], [place], [address], [facility] 10/06/2017 09:53:44 7 Colposcopy completed SHELLY GUNN MD [address], [place], [address], [facility] 10/06/2017 08:56:49 Mastectomy Bilateral completed SHELLY GUNN MD [address] [facility], [address], [place], [address], [facility] 08/30/2017 15:53:50 Oral surgery procedure completed SHELLY GUNN MD [address] [facility], [address] Floor, [place], [address], [place] [facility] 08/30/2017 15:54:05 Imaging Results Imaging Date Name Status LastModified by Organiz ation Details LastModified Time 10/06/2017 ultrasound images completed [facility] [address] [address], [place], [address], 10/06/2017 10:53:43 Procedure Notes None recorded. Medical Equipment None Reported. Allergies No known drug allergies Medications Name Sig Start Date Stop Date Status Note LastModified by Organization Details LastModified Time prednisone 5 mg/mL oral concentrate Take 1 mL every day by oral route. active Not Available Not Available No t Available clindamycin 1 % topical gel APPLY A THIN LAYER TO THE AFFECTED AREA(S) BY TOPICAL ROUTE 2 TIMES PER DAY active Not Available Not Available No t Available lisinopril 10 mg tablet Take 1 tablet every day by oral route. active Not Available Not Available No t Available albuterol 90 mcg/actuatio n aerosol inhaler Inhale 1 puff every 4 hours by inhalation route. active Not Available Not Available No t Available EpiPen active Not Available Not Availa ble Not Available testosterone active Not Available Not Available Not Available warfarin active Not Available Not Avai lable Not Available Claritin active Not Available Not Avai lable Not Available Lopressor active Not Available Not Leonora ilable Not Available [place] 3 active Not Available Not Avail able Not Available fluticasone propionate (bulk) active Not Available Not Available Not Available loratadine 10 mg capsule Take by oral route. active Not Available Not Available Not Available Vitals Date Recorded Body height Body mass index (BMI) Body weight Systolic blood pressure Diastolic blood pressure Provider Name and Address Organization Details Last Updated DateTime 08/30/2017 160.02 cm 53.1 kg/m2 544562. 71 g 132 mm[Hg] 88 mm[Hg] Aliya Ivory [facility] 8 15:40:16 Date Recorded Body height Systolic blood pressure Diastolic blood pressure Provider Name and Address Organization Details Last Updated DateTime 10/06/2017 160.02 cm 124 mm[Hg] 84 mm[Hg] Tala Boles [facility] 10/06/2017 09:41:24 Social History Question Answer Notes LastModified by Organizat ion Details LastModified Time What Is Your Level Of Alcohol Consumption? Occasional Information not available 08/30/2017 What Is Your Occupation? Works At [employer] fcolliton Information not available 08/30/2017 How Much Tobacco Do You Smoke? No Information not available 08/30/2017 Sex: Unknown Functional Status None recorded. Mental Status None recorded. Family History Relationship Description Onset Age of this Age Resolved Age Notes LastModified by Organization Details LastModified Time Maternal Uncle Malignant neoplasm of brain lpizzoferrato 1 Not available 08/30/2017 15:43:17 Maternal Uncle Malignant neoplasm of bone lpizzoferrato 1 Not available 08/30/2017 15:43:27 Notes:No known family hx: Co dora, breast, ovarian Medical History No medical history recorded. Gynecological HistoryNo gynecological history recorded. Obstetrics History GPAL:G 0 P 0 0 0 0 Past Encounters Encounter ID Performer Location Encounter Start Date Encounter Closed Date Diagnosis/Indication Diagnosis SNOMED-CT Code Diagnosis ICD10 Code Diagnosis Note [id number] SHELLY GUNN MD [facility] [address] [place] [address] 08/30/2017 15:33:00 09/05/2017 07:55:58 Dysfunctional uterine bleeding 60270913 N93.8 Abnormal c ervical Papanicolaou smear 249343211 R87.405 [id number] SHELLY GUNN MD [facility] [address] [address] 10/06/2017 08:42:03 10/06/2017 09:57:36 Dysfunctional uterine bleeding 27473100 N93.8 Abnormal c ervical Papanicolaou smear 882680430 R87.619 Health Concerns Section Related Observation LastModified by Organization Detai ls LastModified Time None Recorded Concern Status LastModified by Organization Details LastModified Time None Recorded Advance Directives Directive None Recorded Payers Encounter Date Sequence Insurance Name Policy Number Policy [place] Covered Member ID [place] Member ID Guarantor Name 08/30/2017 1 [place] [id number] Kj Pritchard [id number] 2C Kj Pritchard 10/06/2017 1 [place] [id number] Kj Pritchard [id number] 2C Kj Pritchard Notes Date Note Type Note Provider Name and Address Organization Details Recorded Time 08/30/2017 text/html [facility] Annual GYNReported bypatient.Menstrua l cycle:Irregular cycle intervals Vagina:Normal vaginal discharge Current Contraception:Blair gamous relationship; with male partner Sexual activity:sexually active yes; No sexual complaints Preventive measures:History of abnormal pap smear/cervical dysplasiaNotes:Fem cindy to male transgender here to discuss possible hysterectomy for persistently abnormal paps and irregular heavy bleeding. Has had 3 colpos the first being in his 20s-all LGSIL. Last colpo just few months ago. Has long hx of PCOS and irregular bleeding. Has male longterm partner and plans to . Both have tested negative for STD and no longer use protection. Pt is not interested in having surgery to produce penile implant. Many medical problems including hyperlipidemia, a fib on coumadin, obesity and uveitis. SHELLY GUNN MD [address] [facility], [address] [place] [address], [address], [facility] 08/31/2017 10:27:08 10/06/2017 text/html DUB, hx abnormal paps, neg colpo 06/12 SHELLY GUNN MD 175 [facility], [address] [place] [address], [address], [facility] 10/06/2017 09:55:47 OBGyn Episode No OBEpisode recorded.
== END 2024-10-24 09:13 | disposition home or self-care (01) ==
LOC: HO.HCS 08:35
PROVIDERS: PCP Nurse Practitioner Family; Visit Provider Internal Medicine Cardiovascular Disease
DX: I48.91 Unspecified atrial fibrillation (principal)
CPT/HCPCS: 93010; 99214

== ENCOUNTER → 2024-10-24 08:35 | Outpatient (BNVA) | payer OTHER, SELFPAY | PROVIDERS: PCP Nurse Practitioner Family; Visit Provider Internal Medicine Cardiovascular Disease | DX: I48.91 Unspecified atrial fibrillation (principal); Z79.01 Long term (current) use of anticoagulants | CPT/HCPCS: 93005 ==

== ENCOUNTER 2024-12-03 15:33 | Outpatient (REF) | payer OTHER, SELFPAY ==
--- OUTSIDE RECORDS SUMMARY | 2024-12-03 17:17 | XMS_ITS | Data Portability ---
Author Organization [place] - [facility]'s [facility], [facility] Address [address] [place] [address] Care Team Providers Care Assistant Manager Trainee Name Role Phone ZACHARY PEDROZA Primary Care Provider Assessment No assessment recorded. Plan of Treatment [...] By Organization Details Last Modified Time 08/30/2017 [id number] Pt here ot discuss option of hysterectomy. [...] booked. fcolliton Not available 08/30/2017 16:43:23 10/06/2017 [id number] Check bx and pap . Pt has [...] Out * [place] [id number] Clini janeth Diagn osis and Histo ry [...] Testi ng perfo rmed at [facility] , [address] [place] [address] CLIA [id number] CL-[address] Not [address] [facility] [address] [place], [address] 10/07/2017 16:01:11 10/07/19 18 10/07/2017 pap, IG [...] T/INS UFFIC IENT. INTER PRETA TION: NEGAT RMASEY FOR INTRA EPITH ELIAL LESIO N OR [...] Testi ng perfo rmed at [facility] , [address] [place] [address] CLIA [id number] CL-[address] [facility] [address] [place] [address], [address] 10/07/2017 16:09:55 10/07/19 18 10/07/2017 pap, IG [...] from this sourc e. Not Available [facility] [address] [place] [address], [address] 10/07/2017 16:09:55 10/07/19 18 10/07/2017 CT + NG DNA, PCR, unspe cifie d speci men source Infor matio n not given Not Available [facility] [address] [place], [address] 10/07/2017 16:09:56 10/07/19 18 10/07/2017 CT + NG DNA, PCR, unspe cifie d speci men chlamydia by DNA Negati ve negati ve Not Available [facility] [address] [place], [address] 10/07/2017 16:09:56 10/07/19 18 10/07/2017 CT + NG DNA, PCR, unspe cifie d speci men GC by DNA Negati ve negati ve Not FDA appro hay for GC/Ch lamyd ia in femal e urine speci mens. Test valid ated by CT for detec ting GC/Ch lamyd ia from this sourc e. Not Available [facility] [address] [place], [address] 10/07/2017 16:09:56 10/07/19 18 10/06/2017 ultra sound image s RAD fcolliton [facility] [address] [place] [address], [address], 10/06/2017 10:53:43 Result Notes None recorded. Problems Name Problem SNOMED Code Status Onset Date Resolution Date Notes Provider Name and Address Organization Details Recorded Time Hypertensive disorder 09985114 Active 2017 SHELLY GUNN MD [address] [facility], [address] [place] [address], [address], [facility] 8 15:51:44 Hypertriglycer idemia 148130344 Active 2017 SHELLY GUNN MD [address] [place], [address], [facility] 8 15:51:56 Impaired glucose tolerance 6802523 Active 2017 SHELLY GUNN MD [address] [place], [address], [facility] 8 15:52:22 Atrial fibrillation 25571381 Active 2017 SHELLY GUNN MD [address], [place], [address], [facility] 8 15:52:31 Cervicovaginal cytology: Low grade squamous intraepithelia l lesion 850071708 Active 2017 SHELLY GUNN MD [address], [address], [place], [address], [facility] 8 15:53:07 Uveitis 792531557 Active 2017 SHELLY GUNN MD [address], [address], [place], [address], [facility] 8 15:55:14 Polycystic ovaries Active 2017 SHELLY GUNN MD [address], [place], [address], [facility] 8 15:56:06 Wazfem-yp-vpyy transsexual 057045781 Active 2017 SHELLY GUNN MD [address], [address], [place], [address], [facility] 8 16:13:07 Asthma 025485013 Active 2017 SHELLY GUNN MD [address], [address], [place], [address], [facility] 8 16:37:46 Problem Notes None recorded. Procedures Surgical History Date Name Laterality Status Provider Name and Address Organization Details Recorded Time 8 Endometrial Biopsy Procedure Note completed SHELLY GUNN MD [address], [place], [address], [facility] 10/06/2017 09:53:44 7 Colposcopy completed SHELLY GUNN MD [address], [place], [address], [facility] 10/06/2017 08:56:49 Mastectomy Bilateral completed SHELLY GUNN MD 175 [facility], [address]rd Floor, [place], [address], [facility] 08/30/2017 15:53:50 Oral surgery procedure completed SHELLY GUNN MD [address] [facility], [address] Floor, [place], [address], [facility] 08/30/2017 15:54:05 Imaging Results None recorded. Procedure Notes None recorded. Medical Equipment None [...] Not Available Not Leonora ilable Not Available [place] 3 active Not Available Not Avail able [...] Updated DateTime 08/30/2017 160.02 cm 53.1 kg/m2 435059. 71 g 132 mm[Hg] 88 mm[Hg] Aliya Ivory [facility] 8 15:40:16 Date Recorded Body height Systolic blood pressure Diastolic blood pressure Provider Name and Address Organization Details Last Updated DateTime 10/06/2017 160.02 cm 124 mm[Hg] 84 mm[Hg] Tala Boles [facility] 10/06/2017 09:41:24 Social History Question Answer Notes LastModified by Organization D etails LastModified Time How Much Tobacco Do You Smoke? No Information not available 08/30/2017 Sex: Unknown Functional Status Question Answer Note LastModified by Organizat ion Details LastModified Time What is your level of alcohol consumption? Occasional Information not available 08/30/2017 What is your occupation? works at [employer] Information not available 08/30/2017 Mental Status None recorded. Family History Relationship [...] SNOMED-CT Code Diagnosis ICD10 Code Diagnosis Note [id number] SHELLY GUNN MD [address] [address] 08/30/2017 15:33:00 09/05/2017 07:55:58 Dysfunctional uterine bleeding 77395319 N93.8 Abnormal c ervical Papanicolaou smear 371980316 R87.256 [id number] SHELLY GUNN MD [address] [address] 10/06/2017 08:42:03 10/06/2017 09:57:36 Dysfunctional uterine bleeding 99957850 N93.8 Abnormal c ervical Papanicolaou smear 956618672 R87.619 Health Concerns Section Related Observation LastModified by Organization Detai ls LastModified Time None Recorded Concern Status LastModified by Organization Details LastModified Time None Recorded Advance Directives Directive None Recorded Payers Insurance Date Sequence Insurance Name Policy Number Policy [place] Covered Member ID [place] Member ID Guarantor Name 10/04/2017 1 [place] [id number] Jovanni Pritchard [id number] 2C Jovanni Pritchard Notes Date Note Type Note Provider Name and Address Organization Details Recorded Time 08/30/2017 text/html [facility] Annual GYNReported bypatient.Menstrua l cycle:Irregular cycle intervals Vagina:Normal vaginal discharge Current Contraception:[place] gamous relationship; with male partner Sexual activity:sexually active yes; No sexual complaints Preventive measures:History of abnormal pap smear/cervical dysplasiaNotes:Fem cindy to male transgender here to discuss possible hysterectomy for persistently abnormal paps and irregular heavy bleeding. Has had 3 colpos the first being in his 20s-all LGSIL. Last colpo just few months ago. Has long hx of PCOS and irregular bleeding. Has male salvage determiner partner and plans to . Both have tested negative for STD and no longer use protection. Pt is not interested in having surgery to produce penile implant. Many medical problems including hyperlipidemia, a fib on coumadin, obesity and uveitis. SHELLY GUNN MD 175 [facility], [address] [place], [address], [facility] 08/31/2017 10:27:08 10/06/2017 text/html DUB, hx abnormal paps, neg colpo 06/12 SHELLY GUNN MD 175 [facility], [address], [place], [address], [facility] 10/06/2017 09:55:47 OBGyn Episode No OBEpisode recorded.
[2024-12-03 17:29] LABS: Anion Gap 11 (12-20); Blood Urea Nitrogen 22 mg/dL (9-16); Carbon Dioxide 29 mmol/L (22-29); Chloride 108 mmol/L (96-108); Estimated Glomerular Filt Rate > 60; Glucose Random 74 mg/dL (60-115); Potassium 4.8 mmol/L (3.3-5.1); Sodium 143 mmol/L (135-145)
== END 2024-12-03 15:34 | disposition home or self-care (01) ==
LOC: HO.LAB 15:33
PROVIDERS: PCP Nurse Practitioner Family; Visit Provider Internal Medicine Cardiovascular Disease
DX: I48.91 Unspecified atrial fibrillation (principal); I10 Essential (primary) hypertension; I51.7 Cardiomegaly
CPT/HCPCS: 36415; 80048

== ENCOUNTER → 2024-12-04 08:08 | Outpatient (REF) | payer OTHER, SELFPAY ==
--- NOTE | 2024-12-04 08:11 | CA_ITS ---
Transthoracic Echocardiogram Patient (Last, First, Middle): Piero Pritchard, Gender: Male Date of : 1970 Age: 54 Procedure Date: 12/04/2024 Procedure Type: Transthoracic Echocardiogram Location: OP Height: 157. cm Weight: 89.36 kg BSA: 1.90 m2 Heart Rate: 66 bpm BP: 110 / 80 mmHg Drainage Engineer: KIANA Referring MD: Anthony Montejo MD Press Clippings Cutter And Paster: Anthony Montejo MD Symptoms: I48.91 - Unspecified atrial fibrillation Study Quality: Adequate ECG Rhythm: Atrial Fibrillation Conclusions: - 1. Normal LV ejection fraction of 60 65% 2. Severe biatrial enlargement 3. Normal RV systolic pressure with mildly elevated right atrial pressures 4. No gross pericardial effusion Findings Left Ventricle Normal left ventricular size, thickness, and systolic function. The visually estimated ejection fraction is between 60-65%. Diastolic function is normal for age. Right Ventricle Normal right ventricular cavity size and systolic function. Atria Severe biatrial enlargement. There is no evidence of interatrial shunt. Aortic Valve Normal aortic valve structure and function. There is no aortic valve stenosis. There is no aortic valve regurgitation. Mitral Valve There is mild anterior and posterior mitral leaflet thickening. There is mild mitral valve regurgitation. There is no mitral valve stenosis. Pulmonic Valve The pulmonic valve is likely normal. Tricuspid Valve Normal tricuspid valve structure. There is mild tricuspid valve regurgitation. The right ventricular systolic pressure is normal. Mildly elevated right atrial pressure. There is no evidence of pulmonary hypertension. Great Vessels All visible segments of the aorta are normal in size. The pulmonary artery was not well visualized. Venous The inferior vena cava is moderately dilated and collapses greater than 50% with inspiration. Pericardium/Pleural There is no evidence of pericardial effusion. Prior Study Comparison No significant change compared to prior study dated: 03/05/2022. Measurements 2D Linear Measurements IVSd: 0.91 0.6-0.9/0.6-1.0 cm LVIDd: 4.82 3.9-5.3/4.2-5.9 cm LVIDd Index: 2.54 2.4-3.2/2.2-3.1 cm/m2 LVIDs: 3.24 2.0-3.6 cm LVPWd: 1.18 0.7-1.1 cm LA Diam: 5.30 2.7-3.8/3.0-4.0 cm LAIDs Index: 2.79 1.5-2.3 cm/m2 LV Mass: 227.12 67-162/88-224 g LV Mass Index: 119.54 43-95/49-115 g/m2 LVOT Diam: 1.90 3.0+(-)1.3 cm 2D Systolic Function EF 4C: 62.20 >55% EF 2C: 64.80 >55% EF BiP: 63.90 >55% Mitral Valve MV Pk E: 0.92 MV PK A: 0.39 MV Decel Time: 190.00 E/A: 2.40 E'Lateral: 10.30 E'Medial: 8.67 E/E' Med: 10.60 E/E' Lat: 8.90 PHT: 56.00 MVA PHT: 3.93 Decel Walton: 4.84 Aortic Valve AoV Pk Maurice: 1.33 AoV Mn Maurice: 0.97 AoV VTI: 0.34 AoV Pk Grad: 7.00 Aov Mn Grad: 4.00 ANNETTE Cont.VTI: 1.89 LVOT LVOT Pk Maurice: 0.95 LVOT Mn Maurice: 0.68 LVOT VTI: 0.23 LVOT Pk Grad: 4.00 LVOT Mn Grad: 2.00 LVOT Diam: 1.90 LVOT Area: 2.84 Diastolic Function MV Pk E: 0.92 MV Pk A: 0.39 E/A: 2.40 E'Medial: 8.67 E/E' Med: 10.60 E' Laterial: 10.30 E/E' Lat: 8.90 Right Ventricle TAPSE (mm): 26.50 TVS' Maurice: 10.40 Tricuspid Valve TR Pk Maurice: 1.87 TR Pk Grad: 14.00 RA Press: 8.00 RVSP: 22.00 Great Vessels Aorta Sinus of Valsalva: 3.60 2.0-3.5 cm Ao Asc: 3.10 2.1-3.4 cm Ao Arch: 3.10 Pulmonary Valve PV Pk Maurice: 0.75 Peak PV Grad: 2.00 Updated in Other Vendor System with Status of Final Anthony Montejo MD electronically signed on 12/04/2024 6:47:32 PM with status of Final
== END ==
LOC: HO.CARD 08:08
PROVIDERS: PCP Nurse Practitioner Family; Visit Provider Internal Medicine Cardiovascular Disease
DX: I48.91 Unspecified atrial fibrillation (principal); I25.5 Ischemic cardiomyopathy
CPT/HCPCS: 93306

== ENCOUNTER → 2024-12-04 08:11 | Outpatient (BNV) | payer OTHER, SELFPAY | PROVIDERS: PCP Nurse Practitioner Family; Visit Provider Internal Medicine Cardiovascular Disease | DX: I51.7 Cardiomegaly (principal) | CPT/HCPCS: 93306 ==